=== PATIENT | male | born 1940 | race Caucasian/White ===

== ENCOUNTER 2019-06-08 21:39 | Inpatient (IN) ==
[2019-06-08] MEDS ORDERED: methylPREDNISolone 125 MG/2 ML VIAL IVP ONE (21:47)
[2019-06-08] MEDS ORDERED: Ipratropium/Albuterol Neb 3 ML IH ONE (21:47)
--- NOTE | 2019-06-08 21:53 | Emergency Department Note ---
Disposition Clinical Impression: Hyponatremia, Lung nodule Pneumonia Qualifiers: Pneumonia type: due to unspecified organism Laterality: unspecified laterality Lung location: unspecified part of lung Qualified Code(s): J18.9 - Pneumonia, unspecified organism Reactive airway disease with acute exacerbation Qualifiers: Asthma severity: unspecified severity Asthma persistence: unspecified Qualified Code(s): J45.901 - Unspecified asthma with (acute) exacerbation Disposition: Admitted As Inpatient Condition: Good Referrals: Roberto Carlos Longoria Jr, MD [Primary Care Provider] - Forms: ED Satisfaction Letter Time of Disposition: 23:56 SOB HPI - General Stated Complaint: nelson Time Seen by Provider: 06/08/19 21:47 Source: patient, family (), EMS Mode of arrival: EMS Limitations: no limitations Nursing Notes Reviewed: Yes Vital Signs Reviewed: Yes - History of Present Illness 78-year-old male pack per day smoker, history of CAD with 2 stents, hy pertension, hyperlipidemia presents to the emergency department via EMS for dyspnea. States over the past 5 days sees had a gradually worsening shortness of breath that gotten worse today. Even at rest he feels like he is working harder to breathe with some chest tightness. He denies any other complaints at this time. Denies any orthopnea. States exxertion does not make it worst. He was recently evaluated in sent home with inhaler as well as azithromycin seen at urgent care. He is not been using those medications as it tastes bad. He denies any fevers reports a cough does not report productive. When EMS arrived he was found to be 87% on room air. The place him on oxygen give him a marcial athing treatment which had brought him up to 92. No history of blood clots, malignancy, long-distance travel or hospitalizations. 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 history of bleeding ulcer. Denies G.I. bleed symptoms. Pt Subjective Complaint: shortness of breath - Related Data Allergies Allergy/AdvReac Type Severity Reaction Status Date / Time No Known Allergies Allergy Verified 06/08/19 21:57 All systems ED: reviewed and negative except as stated. Review of Systems: As Per HPI Constitutional: Denies: fever, chills Cardiovascular: Reports: chest pain. Denies: dyspnea on exertion, orthopnea Respiratory: Reports: cough, dyspnea, wheezes. Denies: hemoptysis Gastrointestinal: Denies: abdominal pain, nausea, vomiting Genitourinary: Denies: dysuria Musculoskeletal: Denies: back pain Past Medical History - Past Medical History Attestation: Yes The following information was validated with the patient. Source: patient, obtained from family Physical Exam - General Limitations: no limitations General appearance: alert, in distress (Moderate respiratory, conversational dyspnea) - Head Head exam: atraumatic, normocephalic, normal inspection - Eye Eye exam: Present: normal appearance, EOMI - ENT ENT exam: normal exam, normal oropharynx, mucous membranes moist - Neck Neck exam: Present: normal inspection, full ROM, trachea midline - Chest Chest inspection: Present: normal inspection, symmetric chest wall rise - Respiratory Respiratory exam: Present: respiratory distress, wheezes (Expiratory), prolonged expiratory phase - Cardiovascular Cardiovascular exam: Present: regular rate, normal rhythm, normal heart sounds - Expanded Cardiovascular Exam Peripheral pulses: 2+: radial (R), radial (L) - Abdominal Exam Abdominal exam: Present: soft, Non-Tender, normal bowel sounds, scar (Midline old healing). Absent: tenderness, distention, guarding, rebound, rigidity - Extremities Exam Extremities exam: Present: normal inspection, full ROM, normal capillary refill. Absent: tenderness, pedal edema, calf tenderness - Back Exam Back exam: Present: normal inspection, full ROM. Absent: tenderness - Neurological Exam Neurological exam: Present: alert, oriented X3 - Psychiatric Psychiatric exam: Present: normal affect, anxious - Skin Skin exam: Present: warm, dry, intact, normal color. Absent: rash, cyanosis, diaphoresis Course Course Narrative: Patient presents with reports of increase worker breathing and hypoxia. History of tobacco abuse. No official diagnosis of COPD. On arrival he is on 2 L nasal cannula saturating 93% with increase worker breathing and sub costo retractions. He has bilateral wheezing with prolonged expiratory phase. Will treat similar to COPD with breathing treatments steroids and lab evaluation including chest x- ray. Given his history of CAD and chest tightness will obtain a troponin. Given his increase worker breathing will place him on BiPAP and likely admit him for further evaluation and management. He is agreeable to this plan. - Reevaluation(s) Reevaluation #1: Patient has a leukocytosis of 16. X-ray with concerns for infiltrates. I do suspect he likely has a pneumonia on top of likely COPD exacerbation. He has improved tremendously with the BiPAP and breathing treatments. He will be admitted for further evaluation and management of likely undiagnosed COPD. Patient and family members are agreeable to this plan. Will complete the sepsis evaluation with a lactate and blood cultures prior to antibiotic administration. He has not been hospitalized recently. Patient and family are agreeable to this plan. Impression is pneumonia, wheezing and hypoxia secondary to COPD exacerbation. Patient was notified of lung nodule. Will require further evaluation given his smoking history. Time: 23:54 Vital Signs Temperature 98.2 F 06/08/19 21:50 Pulse Rate 104 06/08/19 21:50 Respiratory Rate 31 06/08/19 21:50 Blood Pressure 155/82 06/08/19 21:50 O2 Sat by Pulse Oximetry 99 06/08/19 21:50 Temperature 98.2 F 06/08/19 21:50 Pulse Rate 103 06/09/19 00:07 Respiratory Rate 24 06/09/19 00:07 Blood Pressure 130/76 06/09/19 00:07 O2 Sat by Pulse Oximetry 96 06/09/19 00:07 Oxygen Delivery Oxygen Delivery Bipap Shortness of Breath/Dyspnea - MDM Narrative Medical decision making narrative: Patient was discussed with my attending physician who agrees with ED management and final disposition. They independently evaluated the patient. Please refer to their attestation to this encounter for additional information. This note was generated by [employer] voice recognition software and as a result grammatical or spelling errors may occur using this program. - Medical Records Medical records reviewed: Yes I reviewed the patient's medical records. - Lab Data Lab results reviewed: Yes I reviewed the patient's lab results. Result diagrams: 06/08/19 22:25 06/08/19 22:25 Lab Results 06/08/19 06/08/19 06/08/19 Range/Units 22:25 22:25 22:25 WBC 18.0 H (4.3-11.1) K/mcL RBC 4.87 (4.19-5.50) M/mcL Hgb 13.3 (12.9-16.9) g/dL Hct 40.5 (37.5-50.1) % MCV 83.2 (83.0-100.0) fL MCH 27.3 L (28.0-33.3) pg MCHC 32.8 (31.6-35.5) g/dL RDW 13.6 (11.5-14.5) % Plt Count 396 (140-400) K/mcL MPV 8.6 L (9.4-12.4) fL Immature Gran % 1.3 (0-4) % Seg Neutrophils % 84.9 % Lymphocytes % 7.0 % Monocytes % 5.2 % Eosinophils % 1.5 % Basophils % 0.1 % Neutrophils # 15.3 H (1.6-8.9) K/mcL Lymphocytes # 1.3 (0.6-4.6) K/mcL Monocytes # 0.9 (0.0-1.3) K/mcL Eosinophils # 0.3 (0.0-0.6) K/mcL Basophils # 0.0 (0.0-0.2) K/mcL Reactive Lymphocytes Present A (Not Present) Sodium 129 L (136-145) mEq/L Potassium 3.7 (3.5-5.1) mEq/L Chloride 94 L (98-107) mEq/L Carbon Dioxide 28 (23-29) mEq/L BUN 12 (8-23) mg/dL Creatinine 0.83 (0.70-1.30) mg/dL Est GFR ( Amer) > 60 (> 60) Est GFR (Non-Af Amer) > 60 (> 60) BUN/Creatinine Ratio 14 (6-26) Glucose 171 H (70-105) mg/dL Calculated Osmolality 272 L (280-300) Lactic Acid 1.5 (0.5-2.2) mmol/L Calcium 8.9 (8.6-10.3) mg/dL Magnesium 1.9 (1.6-2.6) mg/dL Total Bilirubin 0.8 (0.3-1.0) mg/dL Direct Bilirubin 0.2 (0.0-0.2) mg/dL Indirect Bilirubin 0.6 (0.0-1.2) mg/dL AST 26 (13-39) Units/L ALT 50 (7-52) Units/L Alkaline Phosphatase 131 H (34-104) Units/L Troponin I < 0.03 (< 0.04) ng/mL Serum Total Protein 7.3 (6.4-8.9) g/dL Albumin 3.4 L (3.5-5.7) g/dL Globulin 3.9 H (2.4-3.5) g/dL Albumin/Globulin Ratio 0.9 L (1.1-2.2) - Radiology Data Radiology results reviewed: Yes I reviewed the patient's radiology results. Chest X-Ray 06/08/19 21:47 IMPRESSION: Mild bibasilar infiltrates. Coarse interstitial lung markings suggestive COPD. 1.5 cm nodule at the left lung base. Recommend chest CT without contrast in the near future on nonurgent basis. D/ / Lashon Bhatt MD / Lashon Bhatt MD Interpreting Provider: Lashon Bhatt MD - EKG Data EKG attestation: Yes I reviewed and interpreted this EKG. EKG results narrative: EKG performed 2147 sinus tachycardia 107 beats per minute, normal axis, poor R wave progression without ST elevation or depression. No T-wave inversion or Q waves. There is no old EKG available for comparison at this time. No acute ischemic changes.
[2019-06-08 22:41] LABS: Basophils % 0.1 %; Eosinophils # 0.3 K/mcL (0.0-0.6); Eosinophils % 1.5 %; Hematocrit 40.5 % (37.5-50.1); Hemoglobin 13.3 g/dL (12.9-16.9); Immature Granulocytes % 1.3 % (0-4); Lymphocytes # 1.3 K/mcL (0.6-4.6); Mean Corpuscular HGB Conc 32.8 g/dL (31.6-35.5); Mean Corpuscular Hemoglobin 27.3 pg (28.0-33.3); Mean Corpuscular Volume 83.2 fL (83.0-100.0); Mean Platelet Volume 8.6 fL (9.4-12.4); Monocytes # 0.9 K/mcL (0.0-1.3); Monocytes % 5.2 %; Neutrophils # 15.3 K/mcL (1.6-8.9); Platelet Count 396 K/mcL (140-400); Red Blood Count 4.87 M/mcL (4.19-5.50); Red Cell Distribution Width 13.6 % (11.5-14.5); Segmented Neutrophils % 84.9 %
[2019-06-08] MEDS ORDERED: levoFLOXacin 750 MG/150 ML 750 MG/150 ML BAG IVPB ONE (22:56)
[2019-06-08] MEDS ORDERED: cefTRIAXone 1,000 MG in Water for inj. (sterile) 10 ML IVP ONE (22:56)
[2019-06-08] MEDS ORDERED: 0.9 % Sodium Chloride 1,000 ML IVC ONE (22:56)
--- NOTE | 2019-06-08 22:57 | Emergency Department Note ---
Disposition Clinical Impression: Hyponatremia Pneumonia Qualifiers: Pneumonia type: due to unspecified organism Laterality: unspecified laterality Lung location: unspecified part of lung Qualified Code(s): J18.9 - Pneumonia, unspecified organism Reactive airway disease with acute exacerbation Qualifiers: Asthma severity: unspecified severity Asthma persistence: unspecified Qualified Code(s): J45.901 - Unspecified asthma with (acute) exacerbation Disposition: Admitted As Inpatient Condition: Good Referrals: Roberto Carlos Longoria Jr, MD [Primary Care Provider] - Forms: ED Satisfaction Letter Time of Disposition: 00:06 General Adult HPI - General Chief complaint: ED Shortness of Breath/Dyspnea Stated complaint: nelson Time Seen by Provider: 06/08/19 21:47 Source: patient, family (), EMS Mode of arrival: EMS Limitations: no limitations - History of Present Illness Pain Scale: 0 - Related Data Allergies Allergy/AdvReac Type Severity Reaction Status Date / Time No Known Allergies Allergy Verified 06/08/19 21:57 Constitutional: Denies: fever, chills Cardiovascular: Reports: chest pain. Denies: dyspnea on exertion, orthopnea Respiratory: Reports: cough, dyspnea, wheezes. Denies: hemoptysis Gastrointestinal: Denies: abdominal pain, nausea, vomiting Genitourinary: Denies: dysuria Musculoskeletal: Denies: back pain Past Medical History - Past Medical History Medical history: Reports: coronary artery disease, hypertension, myocardial infarction - Social History Smoking Status: Current every day smoker Smokeless Tobacco Status: Yes Alcohol use: Reports: none Physical Exam - General Limitations: no limitations General appearance: alert, in distress (Moderate respiratory, conversational dyspnea) Course Vital Signs Temperature 98.2 F 06/08/19 21:50 Pulse Rate 104 06/08/19 21:50 Respiratory Rate 31 06/08/19 21:50 Blood Pressure 155/82 06/08/19 21:50 O2 Sat by Pulse Oximetry 99 06/08/19 21:50 Temperature 98.2 F 06/08/19 21:50 Pulse Rate 109 06/08/19 23:01 Respiratory Rate 35 06/08/19 23:01 Blood Pressure 129/83 06/08/19 23:01 O2 Sat by Pulse Oximetry 98 06/08/19 23:01 Oxygen Delivery Oxygen Delivery Bipap Medical Decision Making - Lab Data Result diagrams: 06/08/19 22:06/08/19 22:25 Lab Results 06/08/19 06/08/19 06/08/19 Range/Units 22:25 22:25 22:25 WBC 18.0 H (4.3-11.1) K/mcL RBC 4.87 (4.19-5.50) M/mcL Hgb 13.3 (12.9-16.9) g/dL Hct 40.5 (37.5-50.1) % MCV 83.2 (83.0-100.0) fL MCH 27.3 L (28.0-33.3) pg MCHC 32.8 (31.6-35.5) g/dL RDW 13.6 (11.5-14.5) % Plt Count 396 (140-400) K/mcL MPV 8.6 L (9.4-12.4) fL Immature Gran % 1.3 (0-4) % Seg Neutrophils % 84.9 % Lymphocytes % 7.0 % Monocytes % 5.2 % Eosinophils % 1.5 % Basophils % 0.1 % Neutrophils # 15.3 H (1.6-8.9) K/mcL Lymphocytes # 1.3 (0.6-4.6) K/mcL Monocytes # 0.9 (0.0-1.3) K/mcL Eosinophils # 0.3 (0.0-0.6) K/mcL Basophils # 0.0 (0.0-0.2) K/mcL Reactive Lymphocytes Present A (Not Present) Sodium 129 L (136-145) mEq/L Potassium 3.7 (3.5-5.1) mEq/L Chloride 94 L (98-107) mEq/L Carbon Dioxide 28 (23-29) mEq/L BUN 12 (8-23) mg/dL Creatinine 0.83 (0.70-1.30) mg/dL Est GFR ( Amer) > 60 (> 60) Est GFR (Non-Af Amer) > 60 (> 60) BUN/Creatinine Ratio 14 (6-26) Glucose 171 H (70-105) mg/dL Calculated Osmolality 272 L (280-300) Lactic Acid 1.5 (0.5-2.2) mmol/L Calcium 8.9 (8.6-10.3) mg/dL Magnesium 1.9 (1.6-2.6) mg/dL Total Bilirubin 0.8 (0.3-1.0) mg/dL Direct Bilirubin 0.2 (0.0-0.2) mg/dL Indirect Bilirubin 0.6 (0.0-1.2) mg/dL AST 26 (13-39) Units/L ALT 50 (7-52) Units/L Alkaline Phosphatase 131 H (34-104) Units/L Troponin I < 0.03 (< 0.04) ng/mL Serum Total Protein 7.3 (6.4-8.9) g/dL Albumin 3.4 L (3.5-5.7) g/dL Globulin 3.9 H (2.4-3.5) g/dL Albumin/Globulin Ratio 0.9 L (1.1-2.2) Critical Care Time Critical Care Time: Yes Total Critical Care Time: 40 Attestation: Critical care performed: Time is exclusive of separately billable procedures. Time includes: direct patient care, patient reassessment, coordination of patient care, interpretation of data (laboratory data, radiology data, and respiratory data), review of patient's medical records, medical consultation and documentation of patient care. Procedures included in critical care time: Procedures excluded from critical care time: Attestation Statement - Attestation Attestation: I examined this patient and my medical decision-making was reviewed with the Resident Physician. I agree with the documented findings, disposition and treatment plan as described except to the extent set forth below. Patient presented to the ED with shortness of breath. Onset about a week ago. He was seen in urgent care at that time and placed on azithromycin, steroids, and inhaler. Tonight he got worse. He has a 1 pack-a-day smoker. No history of COPD. On exam he is visibly dyspneic. Accessory muscle use. Tachypneic. Diffuse expiratory wheezing. Plan. Nebs and steroids. BiPAP. Cardiac workup. 2299. Patient meet sepsis criteria with a leukocytosis and tachycardia. Sepsis order set placed. Antibiotics ordered. Patient will be admitted. Feeling better tolerating BiPAP at this time. Patient and family agreeable with admission. Calling hospitalist. Patient with a mild hyponatremia as well. Admitted to medicine. Cardiac workup has been unremarkable. Patient and family aware of lung nodule that will need further outpatient workup. Chest X-Ray 06/08/19 21:47 IMPRESSION: Mild bibasilar infiltrates. Coarse interstitial lung markings suggestive COPD. 1.5 cm nodule at the left lung base. Recommend chest CT without contrast in the near future on nonurgent basis. D/ / Lashon Bhatt MD / Lashon Bhatt MD Interpreting Provider: Lashon Bhatt MD
[2019-06-08 23:02] LABS: Reactive Lymphocytes Present (Not Present)
[2019-06-08 23:03] LABS: BUN/Creatinine Ratio 14 (6-26); Blood Urea Nitrogen 12 mg/dL (8-23); Calcium 8.9 mg/dL (8.6-10.3); Carbon Dioxide 28 mEq/L (23-29); Chloride 94 mEq/L (98-107); Glucose 171 mg/dL (70-105); Osmolality,Calculated 272 (280-300); Potassium 3.7 mEq/L (3.5-5.1); Sodium 129 mEq/L (136-145); eGFR For African Americans > 60 (> 60); eGFR For Non-African Americans > 60 (> 60)
[2019-06-08 23:04] LABS: Troponin I < 0.03 ng/mL (< 0.04)
[2019-06-08 23:22] LABS: Alanine Aminotransferase 50 Units/L (7-52); Albumin 3.4 g/dL (3.5-5.7); Albumin/Globulin Ratio 0.9 (1.1-2.2); Alkaline Phosphatase 131 Units/L (34-104); Aspartate Amino Transferase 26 Units/L (13-39); Bilirubin,Direct 0.2 mg/dL (0.0-0.2); Bilirubin,Indirect 0.6 mg/dL (0.0-1.2); Bilirubin,Total 0.8 mg/dL (0.3-1.0); Globulin 3.9 g/dL (2.4-3.5); Magnesium 1.9 mg/dL (1.6-2.6); Total Protein 7.3 g/dL (6.4-8.9)
[2019-06-08] MEDS ORDERED: *HR* LORazepam 2 MG/ML VIAL IVP ONE (23:36)
--- NOTE | 2019-06-09 00:27 | Internal Med History&Physical ---
<Verena Mcdonough M - Last Filed: 06/09/19 03:29> Date of Encounter: 06/09/19 Time of Encounter: 00:24 Internal Medicine - H&P: HPI Admitted From: Emergency Dept History of present illness: Mr. Cheek is a 78 year old male with history of anxiety, hypertension, CAD, hyperlipidemia, nicotine dependence who presented to emergency Department secondary to shortness of breath and chest tightness. The patient states he has had a productive cough of yellow phlegm, worsening over the last 5 days. He notes subjective fevers and chills as well as decreased oral intake. Today he had significant worsening of his shortness of breath which prompted him to call EMS. The patient was seen at urgent care on 06/01/19 and was diagnosed with acute bronchitis, prescription was given for azithromycin 5 day course, albuterol inhaler, and prednisone 20 mg x5 days. The patient states he does not have a formal diagnosis of COPD and does not take inhalers but he does continue to smoke and has for the last 50 years. He denies any nausea, vomiting, angina with exertion, abdominal pain, headache, back pain, nasal congestion, numbness, tingling, weakness, or recent significant weight loss. The patient arrives to the emergency department via EMS after being found at 87 percent on room air at home. He was given a breathing treatment in route brought him to 92%. He is found to be tachypneic, tachycardic and hypoxic with increased work of breathing. He was placed on BiPAP with improvement in his work of breathing. Laboratory evaluation shows leukocytosis up to 18, no evidence of anemia or thrombocytopenia. BMP shows hyponatremia of 129, potassium 3.7, CO2 28. Normal renal function. Glucose 171. Troponin less than 0.03, lactate 1.5. The patient was given 1 L fluid bolus, 1 mg IV Ativan, with methylprednisolone 25 mg, DuoNeb and placed on ceftriaxone and levofloxacin for community-acquired pneumonia. Blood cultures were drawn. The patient states he is full code. Past Med Surg Social Fam HX - Past Medical History Attestation: Yes The following information was validated with the patient. Source: patient Medical history: coronary artery disease, GERD, hyperlipidemia, hypertension, myocardial infarction Additional medical history: stents PCI. hx ulcers - Past Surgical History Surgical History: angioplasty/stent Additional surgical history: abdominal surgery for bleeding ulcer. - Social History Smoking Status: Current every day smoker Packs per day: 1.5x 50 years Smokeless Tobacco Status: Yes Alcohol use: none Current living situation: With Family - Family History Mother Living Status: Age at : 87 Hx Family Cardiac Disorders: No Hx Family Respiratory Disorders: No Hx Family Cancer: No Hx Family GI Disorders: No Hx Family Genitourinary Disorders: No Hx Family Endocrine Disorder: No Hx Family Musculoskeletal Disorders: No Hx Family Neuromuscular Disorders: No Hx Family Neurologic Disorders: No Hx Family HEENT Disorders: No Hx Family Autoimmune Disorders: No Hx Family Reproductive Disorders: No Hx Family Psychosocial Disorders: No Hx Family Medical Disorders: No Internal Medicine - H&P: Meds Unable To Obtain [Unable to Obtain] 06/09/19 [History] Allergy/AdvReac Type Severity Reaction Status Date / Time No Known Allergies Allergy Verified 06/08/19 21:57 All Systems PM: A 10-system review of systems was performed and is negative for pertinent findings except as documented above in the HPI. - Constitutional Constitutional: chills, fever(s) - EENT Eyes: no blurry vision, no change in vision - Cardiovascular Cardiovascular ROS IM: dyspnea, dyspnea on exertion, other (chest "tightness"), no edema - Respiratory Respiratory: cough, dyspnea, wheezing, chest congestion, change in phlegm color, no hemoptysis - Gastrointestinal Gastrointestinal: no abdominal pain, no constipation, no diarrhea, no nausea, no vomiting - Genitourinary Genitourinary ROS male: no difficulty urinating, no dysuria - Musculoskeletal Musculoskeletal ROS IM: no arthralgias, no back pain - Integumentary Integumentary IM: no rash, no skin ulcer - Neurological Neurological ROS: no dizziness, no numbness, no tingling, no weakness - Psychiatric Psychiatric: no anxiety, no depression - Constitutional Vitals: Temp Pulse Resp BP Pulse Ox 98.2 F 103 24 130/76 96 06/08/19 21:50 06/09/19 00:07 06/09/19 00:07 06/09/19 00:07 06/09/19 00:07 Exam: General: Conversant. No apparent distress. Follow commands. Appears stated age. Neck: No JVD. Trachea midline. Neck supple. Eyes: PERRL. No scleral icterus. HENT: Normocephalic and atraumatic. Dry mucus membranes. Cardiovascular: Regular rate and rhythm. Normal S1 and S2. No murmurs appreciated. Normal capillary refill. Extremities well perfused with 2+ distal pulses bilaterally. No edema. Pulmonary: Patient has mild conversational dyspnea. Mild expiratory wheezing, rhonchi in bilateral bases, R>L. Not in respiratory distress on 4L NC. No accessory muscle use. Speaks in full sentences. Abdomen: Soft, nondistended, and tontender. No bruits or masses. No guarding. Neuro: Alert and oriented x3. No slurred speech. No focal deficits noted. Skin: No rashes noted on visualized skin. Musculoskeletal: No bony abnormalities visualized. Moves all extremities. Psych: Normal mood. Pleasant. Makes appropriate eye contact. Internal Med - H&P Results - Labs CBC & Chem 7: 06/08/19 22:25 06/08/19 22:25 Labs: Short CBC 06/08/19 Range/Units 22:25 WBC 18.0 H (4.3-11.1) K/mcL Hgb 13.3 (12.9-16.9) g/dL Hct 40.5 (37.5-50.1) % Plt Count 396 (140-400) K/mcL Neutrophils # 15.3 H (1.6-8.9) K/mcL BMP 06/08/19 22:25 Sodium 129 L Potassium 3.7 Chloride 94 L Carbon Dioxide 28 BUN 12 Creatinine 0.83 Glucose 171 H Calcium 8.9 Cardiac Enzymes 06/08/19 Range/Units 22:25 Troponin I < 0.03 (< 0.04) ng/mL Liver Function 06/08/19 Range/Units 22:25 Total Bilirubin 0.8 (0.3-1.0) mg/dL Direct Bilirubin 0.2 (0.0-0.2) mg/dL AST 26 (13-39) Units/L ALT 50 (7-52) Units/L Alkaline Phosphatase 131 H (34-104) Units/L Albumin 3.4 L (3.5-5.7) g/dL - Impressions ITS Impressions Chest X-Ray 06/08/19 21:47 IMPRESSION: Mild bibasilar infiltrates. Coarse interstitial lung markings suggestive COPD. 1.5 cm nodule at the left lung base. Recommend chest CT without contrast in the near future on nonurgent basis. D/ / Lashon Bhatt MD / Lashon Bhatt MD Interpreting Provider: Lashon Bhatt MD - Assessment and Plan (1) Sepsis Current Visit: Yes Status: Acute Assessment and plan: * Suspected given 2/4 SIRS criteria tachycardia and leukocytosis to 18.0 * Suspected pulmonary source * Blood cultures drawn and pending, will follow * No evidence of lactic acidosis or hypertension to suggest severe sepsis or septic shock * Will complete 30mL/kg bolus with 1L bolus * Continue antibiotics, will place on rocephin and azithromycin for suspected community acquired pneumonia * Will repeat CXR in the morning to evaluate for progression in infiltrate as chest XR in ED shows mild bibasilar infiltrates Qualifiers: Sepsis type: sepsis due to unspecified organism Qualified Code(s): A41.9 - Sepsis, unspecified organism (2) Pneumonia Current Visit: Yes Status: Acute Assessment and plan: * Suspect community acquired pneumonia given productive cough, subjective fever, and leukocytosis * Will repeat chest XR in morning to eval for worsening infiltrate * Continue treatment as above Qualifiers: Pneumonia type: due to unspecified organism Laterality: unspecified laterality Lung location: lower lobe of lung Qualified Code(s): J18.1 - Lobar pneumonia, unspecified organism (3) Acute respiratory failure with hypoxia Current Visit: Yes Status: Acute Assessment and plan: * Suspect there is aspect of COPD given patients wheezing and significant pack year history * Will continue with scheduled duonebs until afternoon then prn * PRN use of BiPAP but patient is tolerating nasal cannula at this time * Will likely need anxiolytic if requires BiPAP again (4) Hyponatremia Current Visit: Yes Status: Acute Assessment and plan: * Likely secondary to dehydration but given significant smoking history of lung nodule seen on CXR will evaluate for potential malignant source, SIADH with CT chest * Patient appears to be euvolemic on exam, denies significant alcohol use * 2L NS bolus given * Will follow BMP for changes (5) Lung nodule Current Visit: Yes Status: Acute Assessment and plan: * Does appear to have been present on CXR in 2009 per my review but no advanced imaging since then * Patient has significant smoking history and given new hyponatremia will eval for potential SIADH with CT chest and evaluate response to fluids given with repeat BMP later in the morning (6) HTN (hypertension) Current Visit: Yes Status: Acute Assessment and plan: * On metoprolol per patient * Will resume once med list confirmed Qualifiers: Hypertension type: essential hypertension Qualified Code(s): I10 - Essential (primary) hypertension (7) CAD (coronary artery disease) Current Visit: Yes Status: Acute Assessment and plan: * History of stenting per patient * Does admit to chest tightness more likely related to cough and pneumonia than ACS * Initial troponin negative, will trend overnight * EKG sinus tach without ischemic changes Qualifiers: Coronary Disease-Associated Artery/Lesion type: [place] artery [place] vs. transplanted heart: [place] heart Associated angina: without angina Qualified Code(s): I25.10 - Atherosclerotic heart disease of [place] coronary artery wi thout angina pectoris (8) HLD (hyperlipidemia) Current Visit: Yes Status: Acute Assessment and plan: * Appears to take statin, will resume once med list confirmed Qualifiers: Hyperlipidemia type: unspecified Qualified Code(s): E78.5 - Hyperlipidemia, unspecified (9) Anxiety Current Visit: Yes Status: Acute Assessment and plan: * prn ativan for BiPAP use until home med list is reconciled (10) DVT prophylaxis Current Visit: Yes Status: Acute Assessment and plan: * EPCD - Time Spent With Patient Total time spent is greater than 50% in coordination of care (as documented) at patient's floor/unit and/or counseling patient: <Hema Watson - Last Filed: 06/09/19 05:03> Date of Encounter: 06/09/19 Time of Encounter: 04:54 - Constitutional Constitutional: chills, fever(s), no night sweats - EENT Eyes: no blurry vision, no change in vision Ears: no ear pain, no tinnitus Nose, mouth and throat: no nasal congestion, no sinus pressure, no sore throat - Cardiovascular Cardiovascular ROS IM: dyspnea, dyspnea on exertion - Respiratory Respiratory: cough, dyspnea, chest congestion, excessive phlegm production, change in phlegm color - Gastrointestinal Gastrointestinal: no abdominal pain, no constipation - Genitourinary Genitourinary ROS male: no dysuria, no flank pain, no hematuria - Musculoskeletal Musculoskeletal ROS IM: no arthralgias, no back pain - Integumentary Integumentary IM: no rash, no jaundice - Neurological Neurological ROS: no dizziness, no focal weakness, no frequent falls, no headache(s) - Psychiatric Psychiatric: no anxiety, no depression - Endocrine Endocrine IM: no polydipsia, no polyphagia, no polyuria - Allergic/Immunologic Allergic/Immunologic: no GI upset with certain foods - Constitutional Vitals: Temp Pulse Resp BP Pulse Ox 98.5 F 92 16 130/57 95 06/09/19 03:46 06/09/19 03:46 06/09/19 04:00 06/09/19 03:46 06/09/19 04:00 General appearance: Present: cooperative, mild distress, A&O X 3, pleasant, answers questions appropriately Exam: mild conversational dyspnea; mild increased work of breathing - Head Head exam: Present: atraumatic, normal inspection - Eye Eye exam: Present: EOMI, PERRL. Absent: scleral icterus Pupils: Present: normal accommodation - ENT ENT exam: Present: mucous membranes dry, normal exam, normal oropharynx - Neck Neck exam general surgery: Present: full ROM, supple, trachea midline. Absent: tenderness, nuchal rigidity, thyromegaly - Respiratory Respiratory exam: Present: accessory muscle use, prolonged expiratory phase, rales, respiratory distress, wheezes, tachypnea. Absent: chest wall tenderness, rhonchi - Cardiovascular Cardiovascular exam: Present: distant heart sounds, +S1, +S2, tachycardia (HR 100's). Absent: diastolic murmur, systolic murmur - GI/Abdominal GI/Abdominal exam: Present: normal bowel sounds, soft. Absent: guarding, hepatomegaly, mass, rebound, splenomegaly, tenderness - Extremities Exam Extremities exam: Present: full ROM, normal capillary refill, warm, radial pulses palpable and symmetrical. Absent: calf tenderness, joint swelling, pedal edema, tenderness - Back Exam Back exam: Present: normal inspection. Absent: CVA tenderness (L), CVA tenderness (R) - Neurological Exam Neurological exam: Present: alert, CN II-XII intact, oriented X3, no focal deficits, strengths equal and symetr throughout - Psychiatric Psychiatric exam: Present: normal affect, normal mood - Skin Skin exam: Present: dry, intact, warm Internal Med - H&P Results - Labs CBC & Chem 7: 06/09/19 02:38 06/09/19 02:38 Labs: Short CBC 06/08/19 06/09/19 Range/Units 22:25 02:38 WBC 18.0 H 16.2 H (4.3-11.1) K/mcL Hgb 13.3 12.4 L (12.9-16.9) g/dL Hct 40.5 38.0 (37.5-50.1) % Plt Count 396 430 H (140-400) K/mcL Neutrophils # 15.3 H 15.0 H (1.6-8.9) K/mcL BMP 06/08/19 06/09/19 22:25 02:38 Sodium 129 L 132 L Potassium 3.7 4.0 Chloride 94 L 91 L Carbon Dioxide 28 25 BUN 12 10 Creatinine 0.83 0.78 Glucose 171 H 192 H Calcium 8.9 8.7 Cardiac Enzymes 06/08/19 06/09/19 Range/Units 22:25 02:38 Troponin I < 0.03 0.04 H* (< 0.04) ng/mL Liver Function 06/08/19 Range/Units 22:25 Total Bilirubin 0.8 (0.3-1.0) mg/dL Direct Bilirubin 0.2 (0.0-0.2) mg/dL AST 26 (13-39) Units/L ALT 50 (7-52) Units/L Alkaline Phosphatase 131 H (34-104) Units/L Albumin 3.4 L (3.5-5.7) g/dL - EKG Data -: EKG Interpreted by Myself - EKG Data Prior EKG available for review: no EKG comments: 06/09/19 04:57 old septal CO; no acute ST-T changes - Impressions ITS Impressions Chest X-Ray 06/08/19 21:47 IMPRESSION: Mild bibasilar infiltrates. Coarse interstitial lung markings suggestive COPD. 1.5 cm nodule at the left lung base. Recommend chest CT without contrast in the near future on nonurgent basis. D/ / Lashon Bhatt MD / Lashon Bhatt MD Interpreting Provider: Lashon Bhatt MD - Diagnostic Studies Chest x-ray Status: image reviewed by me (hyperinflation; subtle bibasilar infiltrates) - Time Spent With Patient Total time spent is greater than 50% in coordination of care (as documented) at patient's floor/unit and/or counseling patient: - Attending Attestation I discussed the patient CAMPO, past medical history, review of systems, lab data, imaging data, and exam findings with Dr. Mcdonough. I then saw and examined patient independently as well. I personally viewed his x-ray and EKG. Although he has not been diagnosed with COPD, clinically I agree he has COPD and has hypoxemic respiratory failure from COPD and likely pneumonia based on clinical grounds. I am also concerned about his hyponatremia and his long smoking history. I recommend CT scan of the chest as I'm concerned he might have an underlying malignancy of his lungs. He has been fluid resuscitated already per sepsis protocol. He did not suffer any hemodynamic instability and/or lactic acidosis. We will continue antibiotics and follow him clinically. Additionally, we will trend his troponins and monitor him on telemetry. If he develops any significant anginal symptoms and/or rising troponins, we will consult cardiology as well. Other than my comments above and documented exam findings, I agree with Dr. Mcdonough's assessment and plan.
[2019-06-09] MEDS ORDERED: Acetaminophen 325 MG TABLET PO PRN (02:05)
[2019-06-09] MEDS ORDERED: Naloxone 0.4 MG/ML INJ IVP PRN (02:05)
[2019-06-09] MEDS ORDERED: Ondansetron ODT 4 MG TAB.RAPDIS SL PRN (02:05)
[2019-06-09] MEDS ORDERED: 0.9 % Sodium Chloride 1,000 ML IVC STA (02:21)
[2019-06-09] MEDS ORDERED: *HR* LORazepam 1 MG TABLET PO PRN ×2 (02:53→14:53)
[2019-06-09] MEDS ORDERED: Isovue-370 500 ML BOTTLE IVP ONE (03:20)
[2019-06-09 03:43] LABS: Basophils % 0.1 %; Eosinophils % 0.2 %; Hemoglobin 12.4 g/dL (12.9-16.9); Immature Granulocytes % 1.9 % (0-4); Immature Platelets 2.9 % (1.1-6.1); Lymphocytes % 3.7 %; Mean Corpuscular HGB Conc 32.6 g/dL (31.6-35.5); Mean Corpuscular Hemoglobin 27.1 pg (28.0-33.3); Mean Corpuscular Volume 83.2 fL (83.0-100.0); Mean Platelet Volume 8.9 fL (9.4-12.4); Monocytes % 1.5 %; Platelet Count 430 K/mcL (140-400); Red Blood Count 4.57 M/mcL (4.19-5.50); Red Cell Distribution Width 13.7 % (11.5-14.5); Segmented Neutrophils % 92.6 %; White Blood Count 16.2 K/mcL (4.3-11.1)
[2019-06-09 03:44] LABS: Lymphocytes # 0.6 K/mcL (0.6-4.6); Monocytes # 0.2 K/mcL (0.0-1.3)
[2019-06-09] MEDS: Azithromycin 500 MG in D5% in Water 250 ML IVPB SCH (03:44)
[2019-06-09 03:58] LABS: BUN/Creatinine Ratio 13 (6-26); Blood Urea Nitrogen 10 mg/dL (8-23); Calcium 8.7 mg/dL (8.6-10.3); Carbon Dioxide 25 mEq/L (23-29); Chloride 91 mEq/L (98-107); Glucose 192 mg/dL (70-105); Osmolality,Calculated 278 (280-300); Sodium 132 mEq/L (136-145); eGFR For African Americans > 60 (> 60); eGFR For Non-African Americans > 60 (> 60)
[2019-06-09] MEDS: Ipratropium/Albuterol Neb 3 ML IH SCH ×5 (03:59→20:00)
[2019-06-09] MEDS: *HR* Heparin 5,000 UNIT/ML VIAL SQ SCH ×2 (05:11→17:00)
[2019-06-09] MEDS ORDERED: methylPREDNISolone 125 MG/2 ML VIAL IVP SCH (06:00)
[2019-06-09] MEDS ORDERED: Ipratropium/Albuterol Neb 3 ML IH PRN (12:01)
--- NOTE | 2019-06-09 12:46 | Electrocardiograph Report ---
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
--- NOTE | 2019-06-09 12:49 | Electrocardiograph Report ---
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
--- NOTE | 2019-06-09 15:04 | Event Note ---
Date of Encounter: 06/09/19 Time of Encounter: 12:30 H & P reviewed, patient was seen at bedside in the afternoon. CT scan conssitent with PNA, has solitary nodules with follow up CT in 3-6 monhts. Pt is much better now. Was having his lunch. Will continue to treat for the PNA. WIll continue the sterodis, reduce the dose. Sodium imporved, will repat levels tomorrow Resume home meds. Anticipate discharge tomorrow
[2019-06-09 16:17] LABS: Creatinine,Urine < 1 mg/dL; Sodium, Urine < 10.0 mEq/L
[2019-06-09] MEDS: MethylPREDNISolone 40 MG/ML VIAL IVP SCH (19:42)
[2019-06-09] MEDS ORDERED: cefTRIAXone 1,000 MG in Water for inj. (sterile) 10 ML IVP SCH (21:00)
[2019-06-10] MEDS: Ipratropium/Albuterol Neb 3 ML IH SCH ×4 (00:06→11:36)
[2019-06-10] MEDS: Azithromycin 500 MG in D5% in Water 250 ML IVPB SCH (02:55)
[2019-06-10 05:20] LABS: Basophils % 0.1 %; Hematocrit 34.2 % (37.5-50.1); Immature Granulocytes % 1.2 % (0-4); Lymphocytes # 1.2 K/mcL (0.6-4.6); Mean Corpuscular HGB Conc 32.5 g/dL (31.6-35.5); Mean Corpuscular Hemoglobin 26.7 pg (28.0-33.3); Mean Corpuscular Volume 82.2 fL (83.0-100.0); Mean Platelet Volume 8.8 fL (9.4-12.4); Monocytes # 0.5 K/mcL (0.0-1.3); Monocytes % 3.4 %; Platelet Count 418 K/mcL (140-400); Red Blood Count 4.16 M/mcL (4.19-5.50); Red Cell Distribution Width 13.9 % (11.5-14.5); Segmented Neutrophils % 87.3 %; White Blood Count 14.9 K/mcL (4.3-11.1)
[2019-06-10 05:21] LABS: Hemoglobin 11.1 g/dL (12.9-16.9)
[2019-06-10 05:33] LABS: BUN/Creatinine Ratio 17 (6-26); Blood Urea Nitrogen 13 mg/dL (8-23); Calcium 8.8 mg/dL (8.6-10.3); Carbon Dioxide 24 mEq/L (23-29); Chloride 97 mEq/L (98-107); Glucose 188 mg/dL (70-105); Osmolality,Calculated 273 (280-300); Potassium 4.5 mEq/L (3.5-5.1); Sodium 129 mEq/L (136-145); eGFR For African Americans > 60 (> 60); eGFR For Non-African Americans > 60 (> 60)
[2019-06-10] MEDS: MethylPREDNISolone 40 MG/ML VIAL IVP SCH (05:48)
[2019-06-10] MEDS: *HR* Heparin 5,000 UNIT/ML VIAL SQ SCH (05:48)
[2019-06-10] MEDS ORDERED: Metoprolol XL (24 HR) Succ 50 MG TAB.ER.24H PO SCH (09:00)
[2019-06-10 11:23] VITALS: BP 126/71
--- NOTE | 2019-06-10 13:44 | Discharge Summary ---
- NOTES TO OUTPATIENT PROVIDER Notes to Outpatient Provider: Follow up on the pulmonary nodule in 3-6 months. Could have SIADH, will recommend fluid restriction of 1500ml/day. Orders not resulted at time of discharge: Pending orders 06/08/19 23:10 Culture,Blood [BC] Stat 06/09/19 03:15 Culture,Sputum with Gram Stain [RM] Stat Date of Encounter: 06/10/19 Time of Encounter: 10:30 - Discharge Diagnosis (1) Acute respiratory failure with hypoxia Priority: Primary Status: Acute (2) Hyponatremia Priority: Secondary Status: Acute (3) Lung nodule Priority: Secondary Status: Acute (4) Pneumonia Priority: Secondary Status: Acute Qualifiers: Pneumonia type: due to unspecified organism Laterality: unspecified laterality Lung location: lower lobe of lung Qualified Code(s): J18.1 - Lobar pneumonia, unspecified organism (5) COPD exacerbation Priority: Secondary Status: Acute Hospital course: Mr. Cheek is a 78 year old male with a past medical history of anxiety, hypertension, CAD, hyperlipidemia, nicotine dependence, presented to the emergency department because of the shortness of breath and chest tightness. Chest x-ray was concerning for pneumonia. CT scan was ordered. Chest CT showed findings suggestive of infectious bronchiolitis, multifocal pneumonia. Patient also had sort of nodules in the bilateral lower lobes. She was started on IV antibiotics including ceftriaxone and azithromycin. He was also started on IV steroids because of the concerns of COPD exacerbation. Patient condition improved. Today, patient is feeling fine. Denies chest pain, shortness of breath. Head and breathing normally. Saturations are in 90s on room air. Discussed with the patient that it is reasonable to keep him in the hospital for 1 more day but the patient and the family would prefer to go home today. Considering the patient's overall situation at this point, from clinical standpoint, patient is hemodynamically stable to be discharged. He will be given a prescription for the antibiotics and steroids. Patient at the nebulizing machine at home and will get the breathing treatments at home. Patient's sodium was 129 while he was in the hospital. 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 As mentioned CT scan is concerning for pulmonary nodules. Recommendations are to repeat the CT scan in 3-6 months. Advised the patient to have fluid restriction of 1500 mL per day. He is a smoker, advised him to stop smoking. Patient is being discharged in stable condition. - Time Spent with Patient Total time spent providing and/or coordinating discharge services: 35 minutes - Discharge Medications Prescriptions: New Amoxicillin/Clavulanate [Augmentin] 875 mg PO BIDWM 8 Days #16 tablet Ipratropium/Albuterol Neb [Duoneb] 3 ml IH Q6H #30 inhsol Azithromycin [Zithromax Tri-Shailesh] 500 mg PO DAILY 3 Days #3 tablet Continued Simvastatin [Zocor] 20 mg PO HS Omeprazole [PriLOSEC] 20 mg PO BID LORazepam [Ativan] 1 mg PO BID PRN PRN Reason: Anxiety Metoprolol Succinate [Toprol Xl] 25 mg PO DAILY Albuterol Sulfate [Proventil Inhaler] 2 puff IH Q6HR PRN PRN Reason: Shortness Of Breath Home Medications: Albuterol Sulfate [Proventil Inhaler] 2 puff IH Q6HR PRN 06/09/19 [History] LORazepam [Ativan] 1 mg PO BID PRN 06/09/19 [History] Metoprolol Succinate [Toprol Xl] 25 mg PO DAILY 06/09/19 [History] Omeprazole [PriLOSEC] 20 mg PO BID 06/09/19 [History] Simvastatin [Zocor] 20 mg PO HS 06/09/19 [History] Amoxicillin/Clavulanate [Augmentin] 875 mg PO BIDWM 8 Days #16 tablet 06/10/19 [Rx] Azithromycin [Zithromax Tri-Shailesh] 500 mg PO DAILY 3 Days #3 tablet 06/10/19 [Rx] Ipratropium/Albuterol Neb [Duoneb] 3 ml IH Q6H #30 inhsol 06/10/19 [Rx] predniSONE [PredniSONE] See Taper PO DAILY #24 tablet 06/10/19 [Rx] Allergies/Adverse Reactions: Allergy/AdvReac Type Severity Reaction Status Date / Time No Known Allergies Allergy Verified 06/08/19 21:57 Date of admission: 06/09/19 05:04 Primary care physician: Roberto Carlos Longoria Jr, MD Consults: 06/09/19 01:31 Consult to Nutrition [CONS] Routine Comment: Consulting Provider: NUTRITION Reason for Dietary Consult: MST Score - Constitutional Vitals: Temp Pulse Resp BP Pulse Ox 97.7 F 77 20 126/71 92 06/10/19 11:20 06/10/19 11:20 06/10/19 11:36 06/10/19 11:20 06/10/19 11:36 General appearance: Present: cooperative, mild distress, A&O X 3, pleasant, answers questions appropriately Exam: General: Alert and oriented, no physical distress, able to follow commands. Respiratory: Mild wheezing on both sides CVS: Normal heart sounds, no murmurs, no edema. Extremities: No peripheral edema, peripheral pulses intact. Lymph nodes: No lymphadenopathy Gastrointestinal: Soft, nontender abdomen, normal abdominal sounds. No distention noted. Genitourinary: No paravertebral tenderness. Neurological: Alert and oriented. No focal deficits. Cranial nerves II-XII intact. - Patient Status Disposition: Home, Self-Care Condition: Good Functional capacity at discharge: independent ambulation Overall status at discharge: patient is progressing back to baseline - Discharge Instructions Follow Up With: Roberto Carlos Longoria Jr, MD [Primary Care Provider] - 06/19/19 3:00 pm - Diet and Activity Activity: increase activity as tolerated Diet: advance to your usual diet
== END 2019-06-10 14:25 | disposition home or self-care (01) | DRG 871 ==
LOC: 2NNU 21:39 → EMEROOARM 21:39 → 2NNU 06-09 00:44 → SUATTDRO 06-09 05:04 → 3ANU 06-09 21:10
PROVIDERS: ADMIT Family Medicine; ATTEND Internal Medicine